=== PATIENT | male | born 1985 | race Caucasian/White ===

== ENCOUNTER 2016-09-01 17:01 | Emergency (ER) | payer MEDICARE, OTHER | END 2016-09-01 18:56 | disposition home or self-care (01) | LOC: ER 17:01 | DX: S60.222A Contusion of left hand, initial encounter (principal); Y04.0XXA Assault by unarmed brawl or fight, initial encounter; Z79.899 Other long term (current) drug therapy | CPT/HCPCS: 73130; 99283; 99283-25 ==